=== PATIENT | male | born 1980 | race Two or more races ===

== ENCOUNTER 2017-01-05 02:04 | Emergency (ER) | payer MEDICAID ==
[~2017-01-05] VITALS: Ht 175.3 cm; Wt 90.7 kg
[2017-01-05 02:15] VITALS: BP 138/95
== END 2017-01-05 07:17 | disposition left against medical advice (07) ==
LOC: ER 02:04 → EDBD 02:04 → ER 07:17
DX: G89.29 Other chronic pain (principal); M54.9 Dorsalgia, unspecified; Z53.21 Procedure and treatment not carried out due to patient leaving prior to being seen by health care provider
CPT/HCPCS: 72131